=== PATIENT | female | born 1930 | race Hispanic/Latino ===

== ENCOUNTER 2018-03-07 21:48 | Inpatient (IN) | payer MEDICARE, BC ==
--- NOTE | 2018-03-07 22:47 | ED PDOC ---
HPI: Trauma/Fall - HPI Time Seen by Provider: 03/07/18 22:28 Chief Complaint (Nursing): Trauma Chief Complaint (Provider): Trauma History Per: Patient, EMS, Family History/Exam Limitations: clinical condition (dementia) Onset/Duration Of Symptoms: Hrs (ROUTE AGENT) Associated Symptoms: denies: LOC Additional Complaint(s): Patient is an 87 y/o female with history of hypertension, hypercholesterolemia, and dementia who was brought to the ED by ambulance for evaluation s/p fall and head injury. Patient was found lying on the floor of her apartment face down. Patient reports that she tripped and fell down but denies any syncopal episode or loss of consciousness. Patient was last seen in the morning today at 11:00 and since then no one saw her. She was found prior to arrival on the floor, covered in excrement. Patient is unclear how long she was on the floor and reports she lives by herself. She states she has neck pain and was put in a cervical collar. She also states she has pain in both knees. Patient is unsure how long she was on the floor. PMD: [place], in [place] - Fall Fall:Prior To Injury: Tripped Past Medical History Reviewed: Historical Data, Nursing Documentation, Vital Signs Vital Signs: Last Vital Signs Temp 97.5 F L 03/07/18 21:54 Pulse 91 H 03/07/18 21:54 Resp 16 03/07/18 21:54 BP 117/72 03/07/18 21:54 Pulse Ox 98 03/07/18 21:54 - Medical History PMH: HTN, Hypercholesterolemia - Surgical History Surgical History: No Surg Hx - Family History Family History: States: Unknown Family Hx - Living Arrangements Living Arrangements: Alone - Immunization History Hx Tetanus Toxoid Vaccination: No Hx Influenza Vaccination: Yes ("65+YRS)) Hx Pneumococcal Vaccination: No - Home Medications Home Medications: Ambulatory Orders Medication Instructions Recorded Losartan/Hydrochlorothiazide 1 each PO DAILY 03/08/18 [Losartan-Hctz 100-12.5 mg Tab] Memantine [Namenda] 5 mg DAILY 03/08/18 Rosuvastatin Calcium [Crestor] 20 mg PO DAILY 03/08/18 - Allergies Allergies/Adverse Reactions: Allergies Allergy/AdvReac Type Severity Reaction Status Date / Time Penicillins Allergy RASH Verified 03/07/18 21:54 Review of Systems ROS Statement: Except As Marked, All Systems Reviewed And Found Negative Cardiovascular: Negative for: Chest Pain Musculoskeletal: Positive for: Neck Pain, Leg Pain (bilateral knee pain), Other (Head injury) Neurological: Negative for: Other (loss of consciousness, syncope) Physical Exam - Reviewed Nursing Documentation Reviewed: Yes Vital Signs Reviewed: Yes - Physical Exam Appears: Positive for: Non-toxic, No Acute Distress Head Exam: Positive for: ATRAUMATIC, NORMOCEPHALIC. Negative for: NORMAL INSPECTION (abrasion on chin) Skin: Positive for: Normal Color, Warm, DRY Eye Exam: Positive for: EOMI, Normal appearance, PERRL ENT: Positive for: Normal ENT Inspection Neck: Negative for: Normal (tender; patient is in cervical collar) Cardiovascular/Chest: Positive for: Regular Rate, Rhythm. Negative for: Murmur Respiratory: Positive for: Normal Breath Sounds. Negative for: Respiratory Distress Gastrointestinal/Abdominal: Positive for: Normal Exam, Soft. Negative for: Tenderness Extremity: Positive for: Normal ROM (of all extremities), Other (abrasion on bilateral knees; abrasion on left hip; upper extremities normal). Negative for: Pedal Edema, Deformity Neurologic/Psych: Positive for: Alert, front elevator operator II-XII (intact), Oriented. Negative for: Motor/Sensory Deficits - Laboratory Results Result Diagrams: 03/07/18 23:30 03/07/18 23:30 - ECG ECG: Positive for: Interpreted By Me, Viewed By [place] ECG Rhythm: Positive for: Normal QRS, Normal ST Segment, Sinus Rhythm. Negative for: ST/T Changes Rate: 94 O2 Sat by Pulse Oximetry: 98 (RA) Pulse Ox Interpretation: Normal - Radiology X-Ray: Interpreted by Me, Viewed By [place] X-Ray Interpretation: No Acute Disease - Other Rad Pelvis X-Ray: Interpreted by Me, Viewed By [place] X-Ray Interpretation: no acute findings Medical Decision Making Medical Decision Making: Time: 22:36 Initial Impression: Fall, head injury, neck injury, bilateral knee injury, multiple system trauma, possible syncope Initial Plan: Type and Screen CT Cervical Spine CT Head w/o contrast EKG BMP CPK Troponin CBC w/ diff PTT Prothrombin Scribe Attestation: Documented by Shaun Jair acting as a scribe for Alexander Mcintosh MD Provider Scribe Attestation: All medical record entries made by the Scribe were at my direction and personally dictated by me. I have reviewed the chart and agree that the record accurately reflects my personal performance of the history, physical exam, medical decision making, and the department course for this patient. I have also personally directed, reviewed, and agree with the discharge instructions and disposition. Disposition - Clinical Impression Clinical Impression: NSTEMI (non-ST elevated myocardial infarction), Fall, Multiple injuries - Patient ED Disposition Is Patient to be Admitted: Transfer of Care Counseled Patient/Family Regarding: Studies Performed, Diagnosis - Disposition Disposition: Transfer of Care Disposition Time: 23:00 Condition: STABLE Patient Signed Over To: Richardson Rod Handoff Comments: Patient pending CT scan, labs, and reevaluation
--- NOTE | 2018-03-07 23:14 | ED PDOC ---
- Laboratory Results Result Diagrams: 03/07/18 23:30 03/07/18 23:30 - ECG O2 Sat by Pulse Oximetry: 98 (RA) Pulse Ox Interpretation: Normal - Critical Care Total Time (In Min): 60 Documented Critical Care: Time excludes all time spent performint seperately billable procedures Medical Decision Making Medical Decision Making: Time: 2299 Patient endorsed to me by Dr. Mcintosh pending CT scan, labs and reevaluation. Time: 24 Patient has troponin of 3. Patient reassessed and has no chest pain or shortness of breath. Vitals stable, patient very well appearing at this time. Discussed the case with the retail stock clerk, Dr. Griggs, recommends ASA instead of heparin given recent history of trauma. Recommends echo. Time: [address] Sage for patient admission. -- Scribe Attestation: Documented by Carlos Muniz acting as a scribe for Richardson Rod MD Provider Scribe Attestation: All medical record entries made by the Scribe were at my direction and personally dictated by me. I have reviewed the chart and agree that the record accurately reflects my personal performance of the history, physical exam, medical decision making, and the department course for this patient. I have also personally directed, reviewed, and agree with the discharge instructions and disposition. Disposition - Clinical Impression Clinical Impression: NSTEMI (non-ST elevated myocardial infarction) - POA Present On Arrival: None - Disposition Disposition: Admitted as In-Patient Disposition Time: 00:40 Condition: SERIOUS
[2018-03-07 23:40] LABS: BASO # 0.1 K/uL (0.0-0.2); BASO % 0.3 % (0.0-2.0); HEMOGLOBIN 13.6 g/dL (12.0-16.0); LYMPH # 0.4 K/uL (1.0-4.3); LYMPH % 2.5 % (20.0-40.0); MEAN CELL VOLUME 87.8 fl (81.0-99.0); MEAN CORPUSCULAR HEMOGLOBIN 31.4 pg (27.0-31.0); MEAN CORPUSCULAR HGB CONC 35.7 g/dL (33.0-37.0); MEAN PLATELET VOLUME 7.7 fl (7.2-11.7); MONO # 0.6 K/uL (0.0-0.8); MONO % 3.7 % (0.0-10.0); NEUT # 16.2 K/uL (1.8-7.0); NEUT % 93.5 % (50.0-75.0); PLATELET COUNT 258 K/uL (130-400); RBC 4.35 Mil/uL (3.80-5.20); RED CELL DISTRIBUTION WIDTH 13.2 % (11.5-14.5); WHITE BLOOD COUNT 17.4 K/uL (4.8-10.8)
[2018-03-07 23:49] LABS: BLOOD UREA NITROGEN 15 mg/dl (7-17); CALCIUM 9.7 mg/dL (8.4-10.2); GFR NON-AFRICAN AMERICAN > 60
[2018-03-07 23:51] LABS: INR 1.1
[2018-03-07 23:53] LABS: PARTIAL THROMBOPLASTIN TIME 32.2 Seconds (25.6-37.1)
[2018-03-08 00:31] LABS: SQUAMOUS EPITHIAL < 1 /hpf (0-5); URINE BACTERIA RARE (<OCC); URINE BILIRUBIN NEGATIVE (NEGATIVE); URINE BLOOD NEGATIVE (NEGATIVE); URINE CLARITY SLIGHTY-CLOUDY (Clear); URINE COLOR YELLOW (YELLOW); URINE GLUCOSE (UA) NEG (Normal); URINE LEUKOCYTE ESTERASE NEG Leu/uL (Negative); URINE PROTEIN 30 mg/dL (NEGATIVE); URINE UROBILINOGEN 0.2-1.0 mg/dL (0.2-1.0)
[2018-03-08] MEDS ORDERED: Sodium Chloride 0.9% 1,000 ML IV STA ×3 (00:42→02:25)
[2018-03-08 01:04] LABS: ANISOCYTOSIS SLIGHT; LYMPHOCYTE 2 % (20-50); MONOCYTE 3 % (0-10); NEUTROPHIL 95 % (42-75); PLATELET ESTIMATE NORMAL (NORMAL); TOTAL CELLS COUNTED 100
[2018-03-08 01:05] LABS: LARGE PLATELETS PRESENT
--- NOTE | 2018-03-08 06:38 | CARD ---
APPROVED REPORT Date of service: 03/07/2018 EKG Measurement Heart [id number] <Conclusion> Normal sinus rhythm Low voltage QRS Borderline ECG
--- NOTE | 2018-03-08 08:42 | CT ---
Date of service: 03/07/2018 PROCEDURE: CT HEAD WITHOUT CONTRAST. HISTORY: fall COMPARISON: None available. TECHNIQUE: Axial computed tomography images were obtained through the head/brain without intravenous contrast. Radiation dose: Total exam DLP = 805.01 mGy-cm. This CT exam was performed using one or more of the following dose reduction techniques: Automated exposure control, adjustment of the mA and/or kV according to patient size, and/or use of iterative reconstruction technique. FINDINGS: HEMORRHAGE: No intracranial hemorrhage. BRAIN: No mass effect or edema. There is generalized cerebral atrophy present. The periventricular hypodensities are compatible with microvascular ischemic changes. There is trace asymmetrical density, not that of blood i,n the right temporal lobe axial series 4, image 29. This is less apparent on subsequent more cephalad images and may be technical. No associated mass effect here appreciated VENTRICLES: Unremarkable. No hydrocephalus. CALVARIUM: Unremarkable. PARANASAL SINUSES: Minimal ethmoidal sinus mucosal inflammatory changes. MASTOID AIR CELLS: Unremarkable as visualized. No inflammatory changes. OTHER FINDINGS: None. IMPRESSION: No intracranial hemorrhage or mass effect. Cerebral atrophy and inferred microvascular ischemic changes-mostly periventricular. Minimal ethmoidal sinus mucosal inflammatory changes.
--- NOTE | 2018-03-08 08:55 | CT ---
Date of service: 03/07/2018 PROCEDURE: CT Cervical Spine without contrast HISTORY: fall COMPARISON: None available. TECHNIQUE: Axial computed tomography images were obtained of the cervical spine without the use of intravenous contrast. Coronal and sagittal reformatted images were created and reviewed. Radiation dose: Total exam DLP = 245.08 mGy-cm. This CT exam was performed using one or more of the following dose reduction techniques: Automated exposure control, adjustment of the mA and/or kV according to patient size, and/or use of iterative reconstruction technique. FINDINGS: VERTEBRAE: No fracture. Normal alignment. No destructive bony lesion. DISCS/SPINAL CANAL/NEURAL FORAMINA: No significant central canal or neural foraminal stenosis. Discs heights are this very slightly diffusely narrowed PARASPINAL SOFT TISSUES: Unremarkable. OTHER FINDINGS: Mild endplate spurring and bilateral apophyseal arthropathic hypertrophy IMPRESSION: No fracture. No significant appearing malalignment Bilateral apophyseal arthrosis -senescent changes. Concordant results (preliminary interpretation) provided by [facility].
--- NOTE | 2018-03-08 08:58 | RAD ---
PROCEDURE: HISTORY: pain COMPARISON: None. FINDINGS: BONES: Bilateral medial femoral tibial joint space narrowing. Bilateral patellofemoral joint space narrowing is also probable. JOINTS: Osteoarthrosis as above JOINT EFFUSION: No large joint effusion. Small effusions not excluded OTHER FINDINGS: None. IMPRESSION: Osteoarthrosis.
--- NOTE | 2018-03-08 08:59 | RAD ---
Date of service: 03/07/2018 PROCEDURE: CHEST RADIOGRAPH, 1 VIEW HISTORY: fall COMPARISON: None available. FINDINGS: LUNGS: Clear. PLEURA: No pneumothorax or pleural fluid seen. CARDIOVASCULAR: Top-normal heart size. Tortuous and heavily calcified thoraco abdominal aorta OSSEOUS STRUCTURES: Thoraco lumbar spondylosis and scoliosis VISUALIZED UPPER ABDOMEN: Normal. OTHER FINDINGS: None. IMPRESSION: No acute cardiopulmonary pathology appreciated Other findings as above.
--- NOTE | 2018-03-08 09:02 | RAD ---
Date of service: 03/07/2018 PROCEDURE: Radiographs of the pelvis. HISTORY: fall COMPARISON: None. FINDINGS: BONES: Generalized osteopenia Pelvic Bones: No gross fracture seen Hips: No gross fracture seen bilateral hip arthrosis JOINTS: Sacroiliac Joints: Unremarkable. Pubic Symphysis: Minimal degenerative changes OTHER FINDINGS: Scoliosis and lumbar facet hypertrophic arthrosis Atherosclerotic vascular calcifications present. Bilateral hemipelvic phleboliths IMPRESSION: Senescent arthro pathic changes and generalized osteopenia. No gross fracture or dislocation seen. Atherosclerotic vascular calcifications present.
[2018-03-08] MEDS: Enoxaparin 40 mg Syringe SC SCH (09:37)
--- NOTE | 2018-03-08 12:17 | CP.PCM.CON ---
History of Present Illness - History of Present Illness History of Present Illness: PT ADMITTED WITH FALL AND HEAD TRAUMA. ASKED TO SEE PT SECONDARY TO POSITIVE TROPONIN. PT DENIES CP, SOB, PALP, LH, SYNCOPE OR NEAR SYNCOPE. PT ALSO NOTED TO HAVE SIGNIFICANTLY ELEVATED CK LEVEL DUE TO FALL. EKG IS UNREMARKABLE. PT DENIES ANY CARDIAC HISTORY. Review of Systems - Constitutional Constitutional: absent: As Per HPI, Anorexia, Chills, Daytime Sleepiness, Excessive Sweating, Fatigue, Fever, Frequent Falls, Headache, Increased Appetite, Lethargy, Malaise, Night Sweats, Snoring, Sleep Apnea, Weight Gain, Weight Loss, Weakness, Other - EENT Eyes: As Per HPI. absent: Blind Spots, Blurred Vision, Change in Vision, Decreased Night Vision, Diplopia, Discharge, Dry Eye, Exophthalmos, Floaters, Irritation, Itchy Eyes, Loss of Peripheral Vision, Pain, Photophobia, Requires Corrective Lenses, Sees Flashes, Spots in Vision, Tunnel Vision, Other Visual Disturbances, Loss of Vision, Other Ears: As Per HPI. absent: Decreased Hearing, Ear Discharge, Ear Pain, Tinnitus, Abnormal Hearing, Disequilibrium, Dizziness, Other Nose/Mouth/Throat: As Per HPI. absent: Epistaxis, Nasal Congestion, Nasal Discharge, Nasal Obstruction, Nasal Trauma, Nose Pain, Post Nasal Drip, Sinus Pain, Sinus Pressure, Bleeding Gums, Change in Voice, Dental Pain, Dry Mouth, Dysphagia, Halitosis, Hoarsness, Lip Swelling, Mouth Lesions, Mouth Pain, Odynophagia, Sore Throat, Throat Swelling, Tongue Swelling, Facial Pain, Neck Pain, Neck Mass, Other - Breasts Breasts: As Per HPI. absent: Change in Shape, Mass, Pain, Nipple Discharge, Nipple Inversion, Skin Changes, Swelling, Other - Cardiovascular Cardiovascular: As Per HPI. absent: Acrocyanosis, Chest Pain, Chest Pain at Rest, Chest Pain with Activity, Claudication, Diaphoresis, Dyspnea, Dyspnea on Exertion, Edema, Irregular Heart Rhythm, Pain Radiating to Arm/Neck/Jaw, Leg Edema, Leg Ulcers, Lightheadedness, Orthopnea, Palpitations, Paroxysmal Nocturnal Dyspnea, Pedal Edema, Radiating Pain, Rapid Heart Rate, Slow Heart Rate, Syncope, Other - Respiratory Respiratory: As Per HPI. absent: Cough, Dyspnea, Hemoptysis, Dyspnea on Exertion, Wheezing, Snoring, Stridor, Pain on Inspiration, Chest Congestion, Excessive Mucous Production, Change in Mucous Color, Pain with Coughing, Other - Gastrointestinal Gastrointestinal: As Per HPI. absent: Abdominal Pain, Belching, Bloating, Change in Bowel Habits, Change in Stool Character, Coffee Ground Emesis, Constipation, Cramping, Diarrhea, Dyspepsia, Dysphagia, Early Satiety, Excessive Flatus, Fecal Incontinence, Heartburn, Hematemesis, Hematochezia, Loose Stools, Melena, Nausea, Odynophagia, Temesmus, Vomiting, Other - Genitourinary Genitourinary: As Per HPI. absent: Change in Urinary Stream, Difficulty Urinating, Dysuria, Flank Pain, Hematuria, Pyuria, Nocturia, Urinary Incontinence, Urinary Frequency, Urinary Hesitance, Urinary Urgency, Voiding Freq/Small Amts, Freq UTI, Hx Renal/Bladder Calculi, Hx /Renal Surgery, Bladder Distension, Other - Reproductive: Female Reproductive:Female: As Per HPI. absent: Amenorrhea, Amenorrhea/ Control, Currently Menstual, Cycle <21 Days, Cycle >35 Days, Cycle Variable, Menses 1-7 Days, Menses >/= 8 Days, Menses Variable, Cycle > 4 Weeks Between, No Menses for 6 Months, Heavy Menses, Light Menses, Normal Menses, Spotting Between Cycles, S/P Hysterectomy, Menopausal, Post Menopausal, Premenarche, Abnormal Vaginal Bleeding, Dysmenorrhea, Dyspareunia, Genital Lesions, Genital Pruritis, Pelvic Pain, Prolapse Symptoms, Sexual Dysfunction, Vaginal Discharge, Vaginal Dryness, Vaginal Odor, Vaginal Pruritis, Other - Menstruation Menstruation: As Per HPI. absent: Amenorrhea, Amenorrhea/ Control, Currently Menstual, Cycle <21 Days, Cycle >35 Days, Cycle Variable, Menses 1-7 Days, Menses >/= 8 Days, Menses Variable, Cycle > 4 Weeks Between, No Menses for 6 Months, Heavy Menses, Light Menses, Normal Menses, Spotting Between Cycles, S/P Hysterectomy, Menopausal, Post Menopausal, Premenarche, Abnormal Vaginal Bleeding, Dysmenorrhea, Other - Musculoskeletal Musculoskeletal: As Per HPI, Limited Range of Motion. absent: Abnormal Gait, Arthralgias, Atrophy, Back Pain, Deformity, Joint Swelling, Loss of Height, Muscle Cramps, Muscle Weakness, Myalgias, Neck Pain, Numbness, Radiating Pain into Limb, Stiffness, Tingling, Other - Integumentary Integumentary: As Per HPI. absent: Acne, Alopecia, Bleeding Lesions, Change in Hair, Change in Nails, Change in Pigmentation, Changing Lesions, Dry Skin, Erythema, Furuncle, Hirsutism, Lesions, New Lesions, Non-Healing Lesions, Photosensitivity, Pruritus, Rash, Skin Pain, Skin Ulcer, Sores, Striae, Swelling, Unusual Bruising, Wounds, Jaundice, Other - Neurological Neurological: As Per HPI. absent: Abnormal Gait, Abnormal Hearing, Abnormal Movements, Abnormal Speech, Behavioral Changes, Burning Sensations, Confusion, Convulsions, Disequilibrium, Dizziness, Numbness, Focal Weakness, Frequent Falls, Headaches, Lack of Coordination, Loss of Vision, Memory Loss, Paresth esias, Radicular Pain, Restless Legs, Sensory Deficit, Syncope, Tingling, Tremor, Vertigo, Weakness, Other Visual Disturbances, Other - Psychiatric Psychiatric: As Per HPI. absent: Abnormal Sleep Pattern, Anhedonia, Anxiety, Auditory Hallucinations, Behavioral Changes, Change in Appetite, Change in Libido, Confusion, Depression, Difficulty Concentrating, Hallucinations, Homicidal Ideation, Hopelessness, Irritability, Memory Loss, Mood Swings, Panic Attacks, Paranoia, Suicidal Ideation, Visual Hallucinations, Tactile Hallucinations, Other - Endocrine Endocrine: As Per HPI. absent: Change in Body Appearance, Change in Libido, Cold Intolorance, Deepening of Voice, Excessive Sweating, Fatigue, Flushing, Heat Intolorance, Increase in Ring/Shoe/Hat Size, Palpitations, Polydipsia, Polyphagia, Polyuria, Other - Hematologic/Lymphatic Hematologic: As Per HPI. absent: Easy Bleeding, Easy Bruising, Lymphadenopathy, Other Past Patient History - Past Medical History & Family History Past Medical History?: Yes - Past Social History Smoking Status: Former Smoker Drugs: Denies - CARDIAC Hx Hypercholesterolemia: Yes Hx Hypertension: Yes - PULMONARY Hx Respiratory Disorders: No - NEUROLOGICAL Hx Neurological Disorder: No - HEENT Hx HEENT Problems: No - RENAL Hx Chronic Kidney Disease: No - ENDOCRINE/METABOLIC Hx Endocrine Disorders: No - HEMATOLOGICAL/ONCOLOGICAL Hx Blood Disorders: No - INTEGUMENTARY Hx Dermatological Problems: No - MUSCULOSKELETAL/RHEUMATOLOGICAL Hx Falls: Yes - GASTROINTESTINAL Hx Gastrointestinal Disorders: No - GENITOURINARY/GYNECOLOGICAL Hx Genitourinary Disorders: No - PSYCHIATRIC Hx Psychophysiologic Disorder: No Hx Substance Use: No - ANESTHESIA Hx Anesthesia: No Hx Anesthesia Reactions: No Meds Allergies/Adverse Reactions: Allergies Allergy/AdvReac Type Severity Reaction Status Date / Time Penicillins Allergy RASH Verified 03/07/18 21:54 - Medications Medications: Current Medications Acetaminophen (Tylenol 325mg Tab) 650 mg PO Q6 PRN PRN Reason: Pain, moderate (4-7) Atorvastatin Calcium (Lipitor) 80 mg PO DAILY [facility] Last Admin: 03/08/18 09:37 Dose: 80 mg Enoxaparin Sodium (Lovenox) 40 mg SC DAILY [facility]; Protocol Last Admin: 03/08/18 09:37 Dose: 40 mg Sodium Chloride (Sodium Chloride 0.9%) 1,000 mls @ 150 mls/hr IV .Q6H40M [facility] Stop: 03/09/18 07:15 Memantine (Namenda) 5 mg PO DAILY [facility] Last Admin: 03/08/18 09:38 Dose: 5 mg Metoprolol Tartrate (Lopressor) 6.25 mg PO Q12 [facility] Last Admin: 03/08/18 09:36 Dose: 6.25 mg Morphine Sulfate (Morphine) 2 mg IVP Q6 PRN PRN Reason: Pain, severe (8-10) Physical Exam - Constitutional Appears: No Acute Distress - Head Exam Head Exam: ATRAUMATIC, NORMAL INSPECTION, NORMOCEPHALIC - Eye Exam Eye Exam: EOMI, Normal appearance, PERRL. absent: Conjunctival injection, Nystagmus, Periorbital swelling, Periorbital tenderness, Scleral icterus Pupil Exam: NORMAL ACCOMODATION, PERRL. absent: Fixed, Irregular, Miosis, Mydriatic, Unequal - ENT Exam ENT Exam: Mucous Membranes Moist, Normal Exam. absent: Mucous Membranes Dry, Normal External Ear Exam, Normal Oropharynx, TM's Normal Bilaterally - Neck Exam Neck exam: Positive for: Normal Inspection. Negative for: Full Rom, Lymphadenopathy, Meningismus, Tenderness, Thyromegaly - Respiratory Exam Respiratory Exam: Clear to Auscultation Bilateral, NORMAL BREATHING PATTERN. absent: Accessory Muscle Use, Chest Wall Tenderness, Decreased Breath Sounds, Prolonged Expiratory Phase, Rales, Rhonchi, Wheezes, Respiratory Distress, Stridor - Cardiovascular Exam Cardiovascular Exam: REGULAR RHYTHM, +S1, +S2, Systolic Murmur - GI/Abdominal Exam GI & Abdominal Exam: Normal Bowel Sounds, Soft. absent: Bruit, Diminished Bowel Sounds, Distended, Firm, Guarding, Hernia, Hyperactive Bowel Sounds, Hypoactive Bowel Sounds, Mass, Organomegaly, Pulsatile Mass, Rebound, Rigid, Tenderness - Rectal Exam Rectal Exam: Deferred - Extremities Exam Extremities exam: Positive for: pedal edema, tenderness, pedal pulses present. Negative for: calf tenderness, full ROM, joint swelling, normal capillary refill, normal inspection - Neurological Exam Neurological exam: Alert, Oriented x3 - Psychiatric Exam Psychiatric exam: Normal Affect, Normal Mood - Skin Skin Exam: Dry, Intact, Normal Color, Warm Results - Vital Signs Recent Vital Signs: Last Vital Signs Temp 97.5 F L 03/08/18 08:00 Pulse 94 H 03/08/18 10:54 Resp 18 03/08/18 08:00 BP 95/58 L 03/08/18 08:00 Pulse Ox 98 03/08/18 10:54 - Labs Result Diagrams: 03/07/18 23:30 03/07/18 23:30 Labs: Laboratory Results - last 24 hr 03/07/18 03/07/18 03/07/18 22:46 23:30 23:30 WBC 17.4 H RBC 4.35 Hgb 13.6 Hct 38.1 MCV 87.8 MCH 31.4 H MCHC 35.7 RDW 13.2 Plt Count 258 MPV 7.7 Neut % (Auto) 93.5 H Lymph % (Auto) 2.5 L [place] % (Auto) 3.7 Eos % (Auto) 0.0 Baso % (Auto) 0.3 Neut # (Auto) 16.2 H Lymph # (Auto) 0.4 L [place] # (Auto) 0.6 Eos # (Auto) 0.0 Baso # (Auto) 0.1 Neutrophils % (Manual) 95 H Lymphocytes % (Manual) 2 L Monocytes % (Manual) 3 Platelet Estimate Normal Large Platelets Present Anisocytosis (manual) Slight PT INR APTT Sodium 128 L Potassium 4.4 Chloride 95 L Carbon Dioxide 24 Anion Gap 13 BUN 15 Creatinine 0.5 L Est GFR ( Amer) > 60 Est GFR (Non-Af Amer) > 60 POC Glucose (mg/dL) 143 H Random Glucose 129 H Calcium 9.7 Total Creatine Kinase > 1600 H Troponin I 3.5300 H* Urine Color Urine Clarity Urine pH Ur Specific [place] Urine Protein Urine Glucose (UA) Urine Ketones Urine Blood Urine Nitrate Urine Bilirubin Urine Urobilinogen Ur Leukocyte Esterase Urine RBC (Auto) Urine Microscopic WBC Ur Squamous Epith Cells Urine Bacteria Hyaline Casts 03/07/18 03/08/18 03/08/18 23:30 00:15 03:00 WBC RBC Hgb Hct MCV MCH MCHC RDW Plt Count MPV Neut % (Auto) Lymph % (Auto) [place] % (Auto) Eos % (Auto) Baso % (Auto) Neut # (Auto) Lymph # (Auto) [place] # (Auto) Eos # (Auto) Baso # (Auto) Neutrophils % (Manual) Lymphocytes % (Manual) Monocytes % (Manual) Platelet Estimate Large Platelets Anisocytosis (manual) PT 12.0 INR 1.1 APTT 32.2 Sodium Potassium Chloride Carbon Dioxide Anion Gap BUN Creatinine Est GFR ( Amer) Est GFR (Non-Af Amer) POC Glucose (mg/dL) Random Glucose Calcium Total Creatine Kinase Troponin I 3.9300 H* Urine Color Yellow Urine Clarity Slighty-cloudy Urine pH 6.0 Ur Specific [place] 1.017 Urine Protein 30 Urine Glucose (UA) Neg Urine Ketones 20 Urine Blood Negative Urine Nitrate Negative Urine Bilirubin Negative Urine Urobilinogen 0.2-1.0 Ur Leukocyte Esterase Neg Urine RBC (Auto) 3 Urine Microscopic WBC 1 Ur Squamous Epith Cells < 1 Urine Bacteria Rare Hyaline Casts 6-10 H 03/08/18 10:21 WBC RBC Hgb Hct MCV MCH MCHC RDW Plt Count MPV Neut % (Auto) Lymph % (Auto) [place] % (Auto) Eos % (Auto) Baso % (Auto) Neut # (Auto) Lymph # (Auto) [place] # (Auto) Eos # (Auto) Baso # (Auto) Neutrophils % (Manual) Lymphocytes % (Manual) Monocytes % (Manual) Platelet Estimate Large Platelets Anisocytosis (manual) PT INR APTT Sodium Potassium Chloride Carbon Dioxide Anion Gap BUN Creatinine Est GFR ( Amer) Est GFR (Non-Af Amer) POC Glucose (mg/dL) Random Glucose Calcium Total Creatine Kinase 3178 H Troponin I Urine Color Urine Clarity Urine pH Ur Specific [place] Urine Protein Urine Glucose (UA) Urine Ketones Urine Blood Urine Nitrate Urine Bilirubin Urine Urobilinogen Ur Leukocyte Esterase Urine RBC (Auto) Urine Microscopic WBC Ur Squamous Epith Cells Urine Bacteria Hyaline Casts Assessment & Plan (1) Aortic stenosis Status: Acute (2) Troponin level elevated Status: Acute (3) Fall Status: Acute - Assessment and Plan (Free Text) Plan: ECHO IMAGES PERSONALLY REVIEWED. EVIDENCE OF MILD TO MOD STENOSIS OF THE AV. AV AREA LIKELY UNDER MEASURED DUE TO UNDER MEASUREMENT OF LVOT. PTS MEAN PRESSURE GRADIENT IS MOD RANGE. PTS MURMUR IS NOT C/W SEVERE STENOSIS. GIVEN PTS LACK OF CP OR SOB THE TROP ELEVATION MAY BE DUE TO FALL AND RHABDO. TREAT WITH ASA, NO ANTICOAGULATION. MONITOR FOR ARRYTHMIAS. TREND TROP. WOULD BE CAUTIOUS WITH ANY ANTIHYPERTENSIVE MEDICATIONS GIVEN PTS AGE AND VALVULAR HEART DISEASE. AVOID DIURETICS. 65 MIN TOTAL CARE TIME.
--- NOTE | 2018-03-08 13:06 | CP.PCM.HP ---
History of Present Illness - History of Present Illness History of Present Illness: 87 y/o female with history of hypertension, hypercholesterolemia, and dementia who presented to the ED by ambulance for evaluation s/p fall and head injury. Patient was found lying on the floor of her apartment. Patient reports that she tripped and fell down but denies any syncopal episode or loss of consciousness. She reports fecal incontinence. Patient is unclear how long she was on the floor and reports she lives by herself. She states she has neck pain and was put in a cervical collar. She also states she has pain in both knees. She denies CP/N/V, SOB, no abdmonial pain, urinary symptoms. PMD: [place] PMH: HTN, HLD, dementia PSH: denies MEds: see bellow Allergies: penicilin ( hives) FMH: noncontributory SH: never smoked, etoh or drugs Present on Admission - Present on Admission Any Indicators Present on Admission: No Review of Systems - Review of Systems All systems: reviewed and no additional remarkable complaints except (HPI) Past Patient History - Past Medical History & Family History Past Medical History?: Yes - Past Social History Smoking Status: Former Smoker - CARDIAC Hx Hypercholesterolemia: Yes Hx Hypertension: Yes - MUSCULOSKELETAL/RHEUMATOLOGICAL Hx Falls: Yes - PSYCHIATRIC Hx Substance Use: No - ANESTHESIA Hx Anesthesia: No Hx Anesthesia Reactions: No Meds Allergies/Adverse Reactions: Allergies Allergy/AdvReac Type Severity Reaction Status Date / Time Penicillins Allergy RASH Verified 03/07/18 21:54 Physical Exam - Constitutional Appears: No Acute Distress - Head Exam Head Exam: NORMAL INSPECTION - Eye Exam Eye Exam: EOMI, PERRL - Respiratory Exam Respiratory Exam: Clear to Auscultation Bilateral - Cardiovascular Exam Cardiovascular Exam: REGULAR RHYTHM, +S1, +S2. absent: Tachycardia - GI/Abdominal Exam GI & Abdominal Exam: Normal Bowel Sounds, Soft. absent: Distended, Tenderness - Extremities Exam Extremities exam: Negative for: calf tenderness - Neurological Exam Neurological exam: Alert, Oriented x3 - Skin Skin Exam: Dry, Warm Additional comments: No abrasions Results - Vital Signs Recent Vital Signs: Last Vital Signs Temp 98.3 F 03/08/18 12:45 Pulse 82 03/08/18 12:45 Resp 18 03/08/18 12:45 BP 98/58 L 03/08/18 12:45 Pulse Ox 98 03/08/18 12:45 - Labs Result Diagrams: 03/07/18 23:30 03/07/18 23:30 Labs: Laboratory Results - last 24 hr 03/07/18 03/07/18 03/07/18 22:46 23:30 23:30 WBC 17.4 H RBC 4.35 Hgb 13.6 Hct 38.1 MCV 87.8 MCH 31.4 H MCHC 35.7 RDW 13.2 Plt Count 258 MPV 7.7 Neut % (Auto) 93.5 H Lymph % (Auto) 2.5 L [place] % (Auto) 3.7 Eos % (Auto) 0.0 Baso % (Auto) 0.3 Neut # (Auto) 16.2 H Lymph # (Auto) 0.4 L [place] # (Auto) 0.6 Eos # (Auto) 0.0 Baso # (Auto) 0.1 Neutrophils % (Manual) 95 H Lymphocytes % (Manual) 2 L Monocytes % (Manual) 3 Platelet Estimate Normal Large Platelets Present Anisocytosis (manual) Slight PT INR APTT Sodium 128 L Potassium 4.4 Chloride 95 L Carbon Dioxide 24 Anion Gap 13 BUN 15 Creatinine 0.5 L Est GFR ( Amer) > 60 Est GFR (Non-Af Amer) > 60 POC Glucose (mg/dL) 143 H Random Glucose 129 H Calcium 9.7 Total Creatine Kinase > 1600 H Troponin I 3.5300 H* Urine Color Urine Clarity Urine pH Ur Specific [place] Urine Protein Urine Glucose (UA) Urine Ketones Urine Blood Urine Nitrate Urine Bilirubin Urine Urobilinogen Ur Leukocyte Esterase Urine RBC (Auto) Urine Microscopic WBC Ur Squamous Epith Cells Urine Bacteria Hyaline Casts 03/07/18 03/08/18 03/08/18 23:30 00:15 03:00 WBC RBC Hgb Hct MCV MCH MCHC RDW Plt Count MPV Neut % (Auto) Lymph % (Auto) [place] % (Auto) Eos % (Auto) Baso % (Auto) Neut # (Auto) Lymph # (Auto) [place] # (Auto) Eos # (Auto) Baso # (Auto) Neutrophils % (Manual) Lymphocytes % (Manual) Monocytes % (Manual) Platelet Estimate Large Platelets Anisocytosis (manual) PT 12.0 INR 1.1 APTT 32.2 Sodium Potassium Chloride Carbon Dioxide Anion Gap BUN Creatinine Est GFR ( Amer) Est GFR (Non-Af Amer) POC Glucose (mg/dL) Random Glucose Calcium Total Creatine Kinase Troponin I 3.9300 H* Urine Color Yellow Urine Clarity Slighty-cloudy Urine pH 6.0 Ur Specific [place] 1.017 Urine Protein 30 Urine Glucose (UA) Neg Urine Ketones 20 Urine Blood Negative Urine Nitrate Negative Urine Bilirubin Negative Urine Urobilinogen 0.2-1.0 Ur Leukocyte Esterase Neg Urine RBC (Auto) 3 Urine Microscopic WBC 1 Ur Squamous Epith Cells < 1 Urine Bacteria Rare Hyaline Casts 6-10 H 03/08/18 10:21 WBC RBC Hgb Hct MCV MCH MCHC RDW Plt Count MPV Neut % (Auto) Lymph % (Auto) [place] % (Auto) Eos % (Auto) Baso % (Auto) Neut # (Auto) Lymph # (Auto) [place] # (Auto) Eos # (Auto) Baso # (Auto) Neutrophils % (Manual) Lymphocytes % (Manual) Monocytes % (Manual) Platelet Estimate Large Platelets Anisocytosis (manual) PT INR APTT Sodium Potassium Chloride Carbon Dioxide Anion Gap BUN Creatinine Est GFR ( Amer) Est GFR (Non-Af Amer) POC Glucose (mg/dL) Random Glucose Calcium Total Creatine Kinase 3178 H Troponin I Urine Color Urine Clarity Urine pH Ur Specific [place] Urine Protein Urine Glucose (UA) Urine Ketones Urine Blood Urine Nitrate Urine Bilirubin Urine Urobilinogen Ur Leukocyte Esterase Urine RBC (Auto) Urine Microscopic WBC Ur Squamous Epith Cells Urine Bacteria Hyaline Casts Assessment & Plan - Assessment and Plan (Free Text) Assessment: 87 y/o female with history of hypertension, hypercholesterolemia, and dementia admitted with NSTEMI, s/p syncope and fall at home. Plan: - Denies chest pain, VSS though BP in the low side - CT Cervical Spine and CT Head w/o contrast negative for bleeding or fractures - EKG: sinus rhythm - Troponin elevated x3 - CPK elevated - Cardiology consulted: appreciated recommendations - on ASA, lipitor and lopressor - f/u labs in am - echo official report pending. - rest of plan as ordered Case seen and examined with Dr Burkett.
--- NOTE | 2018-03-08 21:23 | CARD ---
APPROVED REPORT Date of service: 03/08/2018 EXAM: Two-dimensional and M-mode echocardiogram with Doppler and color Doppler. Other Information Quality : Good[employer] : NSR INDICATION Non STEMI 2D DIMENSIONS IVSd0.78 (0.7-1.1cm)LVDd4.22 (3.9-5.9cm) LVOT Diameter1.72 (1.8-2.4cm)PWd0.81 (0.7-1.1cm) IVSs1.17 (0.8-1.2cm)LVDs2.60 (2.5-4.0cm) FS (%) 38.5 %PWs1.19 (0.8-1.2cm) M-Mode DIMENSIONS Left Atrium (MM)4.16 (2.5-4.0cm)IVSd0.85 (0.7-1.1cm) Aortic Root2.51 (2.2-3.7cm)LVDd4.96 (4.0-5.6cm) Aortic Cusp Exc.1.13 (1.5-2.0cm)PWd0.94 (0.7-1.1cm) IVSs1.38 cmFS (%) 52 % LVDs2.40 (2.0-3.8cm)PWs1.32 cm Aortic Valve AoV Peak Axvlpxpu553.0cm/sAoV VTI77.2cmAO Peak GR.47mmHg LVOT Peak Ukvyfjww43.2cm/sLVOT VTI18.99cmAO Mean GR.29mmHg COLIN (VMAX)0.49ak6LFD (VTI)0.40cm2 Mitral Valve MV E Nuyyqhuv74.6cm/sMV DECEL [id number] A Ugpnflaw943.6cm/s MV PAN279fuN/A ratio0.6MVA (PHT)2.03cm2 TDI Lateral E' Peak V6.19cm/sMedial E' Peak V6.03cm/sE/Lateral E'11.6 E/Medial E'11.9 Tricuspid Valve TR Peak Yufyvnoq511dm/sRAP [id number] Peak Gr.21mmHg [id number] LEFT VENTRICLE The left ventricle is normal size. There is normal left ventricular wall thickness. The left ventricular systolic function is normal. The estimated ejection fraction is 60-65% No regional wall motion abnormalities noted.. Transmitral Doppler flow pattern is Grade I-abnormal relaxation pattern. No left ventricle thrombus noted on this study. There is no ventricular septal defect visualized. There is no left ventricular aneurysm. There is no mass noted in the left ventricle. RIGHT VENTRICLE The right ventricle is normal size. There is normal right ventricular wall thickness. The right ventricular systolic function is normal. ATRIA The left atrium is mildly dilated. The right atrium size is normal. The interatrial septum is intact with no evidence for an atrial septal defect. AORTIC VALVE The aortic valve is normal in structure. Mildly calcified leaflets. No aortic regurgitation is present. There is severe aortic valvular stenosis. Peak aortic velocity is 3.8 m/sec but AV area is calculated at 0.6 cm2 consistent with severe . There is no aortic valvular vegetation. MITRAL VALVE The mitral valve is normal in structure. There is no evidence of mitral valve prolapse. There is no mitral valve stenosis. There is no mitral valve regurgitation noted. TRICUSPID VALVE The tricuspid valve is normal in structure. There is mild tricuspid valve regurgitation noted. RVSP is calculated at 31 mm Hg. There is no tricuspid valve prolapse or vegetation. There is no tricuspid valve stenosis. PULMONIC VALVE The pulmonary valve is normal in structure. There is no pulmonic valvular regurgitation. There is no pulmonic valvular stenosis. GREAT VESSELS The aortic root is normal in size. The ascending aorta is normal in size. The pulmonary artery is normal. The IVC is normal in size and collapses >50% with inspiration. PERICARDIAL EFFUSION There is no pericardial effusion. There is no pleural effusion. <Conclusion> The estimated ejection fraction is 60-65% Transmitral Doppler flow pattern is Grade I-abnormal relaxation pattern. The left atrium is mildly dilated. There is severe aortic valvular stenosis. Peak aortic velocity is 3.8 m/sec but AV area is calculated at 0.6 cm2 consistent with severe . There is mild tricuspid valve regurgitation noted. RVSP is calculated at 31 mm Hg.
[2018-03-08] MEDS: Sodium Chloride 0.9% 1,000 ML IV SCH (21:44)
[2018-03-09] MEDS: Sodium Chloride 0.9% 1,000 ML IV SCH ×4 (05:55→20:09)
[2018-03-09] MEDS: Enoxaparin 40 mg Syringe SC SCH (08:49)
[2018-03-09 10:21] LABS: HEMOGLOBIN 10.4 g/dL (12.0-16.0); MEAN CELL VOLUME 89.8 fl (81.0-99.0); MEAN CORPUSCULAR HEMOGLOBIN 31.5 pg (27.0-31.0); MEAN CORPUSCULAR HGB CONC 35.1 g/dL (33.0-37.0); RBC 3.29 Mil/uL (3.80-5.20); RED CELL DISTRIBUTION WIDTH 13.1 % (11.5-14.5); WHITE BLOOD COUNT 9.4 K/uL (4.8-10.8)
[2018-03-09 10:40] LABS: BLOOD UREA NITROGEN 10 mg/dl (7-17); CALCIUM 8.2 mg/dL (8.4-10.2); GFR NON-AFRICAN AMERICAN > 60
[2018-03-09] MEDS ORDERED: Potassium Chloride 20 mEq ER Tab PO ONE (11:27)
--- NOTE | 2018-03-09 12:47 | CP.PCM.PN ---
Subjective - Date & Time of Evaluation Date of Evaluation: 03/09/18 Time of Evaluation: 12:47 - Subjective Subjective: Patient seen and examined this morning during rounds, reports feeling well, denies chest pain or abdominal pain, no sob Afebrile, VSS Pending for PT eval Objective - Vital Signs/Intake and Output Vital Signs (last 24 hours): Temp Pulse Resp BP Pulse Ox 98.4 F 80 18 89/45 L 98 03/09/18 11:52 03/09/18 11:52 03/09/18 11:52 03/09/18 11:52 03/09/18 11:52 - Medications Medications: Current Medications Acetaminophen (Tylenol 325mg Tab) 650 mg PO Q6 PRN PRN Reason: Pain, moderate (4-7) Aspirin (Aspirin Chewable) 81 mg PO DAILY [facility] Last Admin: 03/09/18 08:48 Dose: 81 mg Atorvastatin Calcium (Lipitor) 80 mg PO DAILY [facility] Last Admin: 03/09/18 08:47 Dose: 80 mg Enoxaparin Sodium (Lovenox) 40 mg SC DAILY [facility]; Protocol Last Admin: 03/09/18 08:49 Dose: 40 mg Sodium Chloride (Sodium Chloride 0.9%) 1,000 mls @ 250 mls/hr IV .Q4H [facility] Stop: 03/10/18 12:08 Memantine (Namenda) 5 mg PO DAILY [facility] Last Admin: 03/08/18 09:38 Dose: 5 mg Metoprolol Tartrate (Lopressor) 6.25 mg PO Q12 [facility] Last Admin: 03/09/18 08:48 Dose: 6.25 mg Morphine Sulfate (Morphine) 2 mg IVP Q6 PRN PRN Reason: Pain, severe (8-10) Last Admin: 03/08/18 17:36 Dose: 2 mg - Labs Labs: 03/09/18 10:18 03/09/18 10:18 PT 12.0 Seconds (9.8-13.1) 03/07/18 23:30 INR 1.1 03/07/18 23:30 APTT 32.2 Seconds (25.6-37.1) 03/07/18 23:30 - Constitutional Appears: No Acute Distress - Head Exam Head Exam: NORMAL INSPECTION - Respiratory Exam Respiratory Exam: Clear to Ausculation Bilateral - Cardiovascular Exam Cardiovascular Exam: REGULAR RHYTHM, +S1, +S2, Murmur - GI/Abdominal Exam GI & Abdominal Exam: Soft. absent: Distended, Tenderness - Neurological Exam Neurological Exam: Alert, Awake, Oriented x3 - Skin Skin Exam: Dry, Warm Additional comments: bruise appreciated on chin Assessment and Plan - Assessment and Plan (Free Text) Assessment: 87 y/o female with history of hypertension, hypercholesterolemia, and dementia admitted with NSTEMI, s/p syncope and fall at home. Plan: - Denies chest pain, VSS though BP in the low side - EKG: sinus rhythm - Troponin elevated x3 trending down - CPK elevated, f/u in am - hypokalemia, replaced - Cardiology consulted: appreciated recommendations - on ASA, lipitor and lopressor - f/u labs in am - echo: LVEF 60-65%, severe , dilated LA - Pending for PT eval - rest of plan as ordered Case seen and examined with Dr Burkett.
[2018-03-10] MEDS: Sodium Chloride 0.9% 1,000 ML IV SCH ×5 (04:49→17:54)
[2018-03-10 05:31] LABS: BASO % 0.5 % (0.0-2.0); EOS # 0.2 K/uL (0.0-0.7); EOS % 1.9 % (0.0-4.0); HEMOGLOBIN 10.7 g/dL (12.0-16.0); LYMPH # 1.5 K/uL (1.0-4.3); LYMPH % 16.5 % (20.0-40.0); MEAN CELL VOLUME 91.5 fl (81.0-99.0); MEAN CORPUSCULAR HEMOGLOBIN 31.7 pg (27.0-31.0); MEAN CORPUSCULAR HGB CONC 34.6 g/dL (33.0-37.0); MEAN PLATELET VOLUME 8.4 fl (7.2-11.7); MONO # 0.6 K/uL (0.0-0.8); MONO % 6.9 % (0.0-10.0); NEUT # 6.7 K/uL (1.8-7.0); NEUT % 74.2 % (50.0-75.0); RBC 3.38 Mil/uL (3.80-5.20); RED CELL DISTRIBUTION WIDTH 13.4 % (11.5-14.5)
[2018-03-10 05:51] LABS: BLOOD UREA NITROGEN 11 mg/dl (7-17); GFR NON-AFRICAN AMERICAN > 60
[2018-03-10] MEDS: Enoxaparin 40 mg Syringe SC SCH (08:53)
--- NOTE | 2018-03-10 12:59 | CP.PCM.PN ---
Subjective - Date & Time of Evaluation Date of Evaluation: 03/09/18 Time of Evaluation: 13:00 - Subjective Subjective: PT HERE SECONDARY TO FALL AND HEAD TRAUMA. PT STATES SHE SLIPPED AND FELL. PT DENIES SYNCOPE. DENIES CP, PALP, LH, DIZZINESS, SOB, EDEMA. Objective - Vital Signs/Intake and Output Vital Signs (last 24 hours): Temp Pulse Resp BP Pulse Ox 97.4 F L 87 21 122/67 94 L 03/10/18 12:01 03/10/18 12:01 03/10/18 12:01 03/10/18 12:01 03/10/18 12:01 - Medications Medications: Current Medications Acetaminophen (Tylenol 325mg Tab) 650 mg PO Q6 PRN PRN Reason: Pain, moderate (4-7) Aspirin (Aspirin Chewable) 81 mg PO DAILY [facility] Last Admin: 03/10/18 08:58 Dose: 81 mg Atorvastatin Calcium (Lipitor) 80 mg PO DAILY [facility] Last Admin: 03/10/18 08:54 Dose: 80 mg Enoxaparin Sodium (Lovenox) 40 mg SC DAILY [facility]; Protocol Last Admin: 03/10/18 08:53 Dose: 40 mg Memantine (Namenda) 5 mg PO DAILY [facility] Last Admin: 03/10/18 08:57 Dose: 5 mg Metoprolol Tartrate (Lopressor) 6.25 mg PO Q12 [facility] Last Admin: 03/10/18 08:55 Dose: 6.25 mg Morphine Sulfate (Morphine) 2 mg IVP Q6 PRN PRN Reason: Pain, severe (8-10) Last Admin: 03/08/18 17:36 Dose: 2 mg - Labs Labs: 03/10/18 04:20 03/10/18 04:20 PT 12.0 Seconds (9.8-13.1) 03/07/18 23:30 INR 1.1 03/07/18 23:30 APTT 32.2 Seconds (25.6-37.1) 03/07/18 23:30 - Constitutional Appears: Well - Head Exam Head Exam: ATRAUMATIC, NORMAL INSPECTION, NORMOCEPHALIC - Eye Exam Eye Exam: EOMI, Normal appearance, PERRL. absent: Conjunctival injection, Nystagmus, Periorbital swelling, Periorbital tenderness, Scleral icterus Pupil Exam: NORMAL ACCOMODATION, PERRL - ENT Exam ENT Exam: Mucous Membranes Moist, Normal Exam. absent: Mucous Membranes Dry, Normal External Ear Exam, Normal Oropharynx, TM's Normal Bilaterally - Neck Exam Neck Exam: Full ROM, Normal Inspection. absent: Lymphadenopathy, Meningismus, Tenderness, Thyromegaly - Respiratory Exam Respiratory Exam: Clear to Ausculation Bilateral, NORMAL BREATHING PATTERN. absent: Accessory Muscle Use, Chest Wall Tenderness, Decreased Breath Sounds, Prolonged Expiratory Phase, Rales, Rhonchi, Wheezes, Respiratory Distress, Stridor - Cardiovascular Exam Cardiovascular Exam: Diastolic murmur, REGULAR RHYTHM, +S1, +S2, Murmur. absent: Bradycardia, Tachycardia, Clicks, Gallop, Irregular Rhythm, JVD, RRR, Rubs, +S4 - GI/Abdominal Exam GI & Abdominal Exam: Soft, Normal Bowel Sounds. absent: Bruit, Distended, Firm, Guarding, Rigid, Tenderness, Diminished Bowel Sounds, Hernia, Hyperactive Bowel Sounds, Hypoactive Bowel Sounds, Organomegaly, Pulsatile Mass, Rebound, Mass - Rectal Exam Rectal Exam: Deferred - Extremities Exam Extremities Exam: Full ROM, Normal Capillary Refill, Normal Inspection. absent: Joint Swelling, Pedal Edema - Back Exam Back Exam: NORMAL INSPECTION - Neurological Exam Neurological Exam: Alert, Awake, CN II-XII Intact, Normal Gait, Oriented x3 - Psychiatric Exam Psychiatric exam: Normal Affect, Normal Mood - Skin Skin Exam: Dry, Intact, Normal Color, Warm Assessment and Plan (1) Aortic stenosis Status: Acute (2) Troponin level elevated Status: Acute (3) Fall Status: Acute - Assessment and Plan (Free Text) Plan: ECHO NOTED CAROTIDS MONITOR LYTES TREND TROP NO CP OR CARDIAC SYMPTOMS. PT HAS ELEVATED CPK. TROP UNLIKELY DUE TO MYOCARDIAL ISCHEMIA
[2018-03-11] MEDS: Sodium Chloride 0.9% 1,000 ML IV SCH (05:39)
[2018-03-11 07:50] LABS: BLOOD UREA NITROGEN 12 mg/dl (7-17); CALCIUM 8.3 mg/dL (8.4-10.2); GFR NON-AFRICAN AMERICAN > 60
[2018-03-11 08:19] VITALS: BP 129/74; PULSE 84; RESP 20; TEMP 99.3; O2SAT 96
[2018-03-11] MEDS: Enoxaparin 40 mg Syringe SC SCH (10:18)
--- NOTE | 2018-03-13 06:24 | CP.PCM.PN ---
Subjective - Date & Time of Evaluation Date of Evaluation: 03/10/18 Time of Evaluation: 11:00 - Subjective Subjective: Patient remains stable Has no chest pain or SOB. Has no chest pain Had a hx of slip and fall. CBC showed hgb 10.7CMP normal CPK dropped to329 Objective - Vital Signs/Intake and Output Vital Signs (last 24 hours): Temp Pulse Resp BP Pulse Ox 99.3 F 84 20 129/74 96 03/11/18 08:19 03/11/18 08:19 03/11/18 08:19 03/11/18 08:19 03/11/18 08:19 - Labs Labs: 03/10/18 04:20 03/11/18 06:00 PT 12.0 Seconds (9.8-13.1) 03/07/18 23:30 INR 1.1 03/07/18 23:30 APTT 32.2 Seconds (25.6-37.1) 03/07/18 23:30 - Head Exam Head Exam: NORMAL INSPECTION - Eye Exam Eye Exam: Normal appearance - ENT Exam ENT Exam: Mucous Membranes Moist - Respiratory Exam Respiratory Exam: Clear to Ausculation Bilateral - GI/Abdominal Exam GI & Abdominal Exam: Normal Bowel Sounds - Neurological Exam Neurological Exam: Awake Assessment and Plan (1) Fall Status: Acute (2) Troponin level elevated Status: Acute (3) Aortic stenosis Status: Acute - Assessment and Plan (Free Text) Plan: Cont meds Phys therapy follow up with cardio Pain meds.
--- NOTE | 2018-03-13 06:28 | CP.PCM.DIS ---
Provider - Provider Date of Admission: 03/08/18 00:42 Attending physician: Dagoberto Coleman MD Time Spent in preparation of Discharge (in minutes): 30 Diagnosis - Discharge Diagnosis (1) Fall Status: Acute (2) Troponin level elevated Status: Acute (3) Aortic stenosis Status: Acute Hospital Course - Lab Results Lab Results: Most Recent Lab Values WBC 9.0 K/uL (4.8-10.8) 03/10/18 04:20 RBC 3.38 Mil/uL (3.80-5.20) L 03/10/18 04:20 Hgb 10.7 g/dL (12.0-16.0) L 03/10/18 04:20 Hct 30.9 % (34.0-47.0) L 03/10/18 04:20 MCV 91.5 fl (81.0-99.0) 03/10/18 04:20 MCH 31.7 pg (27.0-31.0) H 03/10/18 04:20 MCHC 34.6 g/dL (33.0-37.0) 03/10/18 04:20 RDW 13.4 % (11.5-14.5) 03/10/18 04:20 Plt Count 178 K/uL (130-400) 03/10/18 04:20 MPV 8.4 fl (7.2-11.7) 03/10/18 04:20 Neut % (Auto) 74.2 % (50.0-75.0) 03/10/18 04:20 Lymph % (Auto) 16.5 % (20.0-40.0) L 03/10/18 04:20 [place] % (Auto) 6.9 % (0.0-10.0) 03/10/18 04:20 Eos % (Auto) 1.9 % (0.0-4.0) 03/10/18 04:20 Baso % (Auto) 0.5 % (0.0-2.0) 03/10/18 04:20 Neut # (Auto) 6.7 K/uL (1.8-7.0) 03/10/18 04:20 Lymph # (Auto) 1.5 K/uL (1.0-4.3) 03/10/18 04:20 [place] # (Auto) 0.6 K/uL (0.0-0.8) 03/10/18 04:20 Eos # (Auto) 0.2 K/uL (0.0-0.7) 03/10/18 04:20 Baso # (Auto) 0.0 K/uL (0.0-0.2) 03/10/18 04:20 Neutrophils % (Manual) 95 % (42-75) H 03/07/18 23:30 Lymphocytes % (Manual) 2 % (20-50) L 03/07/18 23:30 Monocytes % (Manual) 3 % (0-10) 03/07/18 23:30 Platelet Estimate Normal (NORMAL) 03/07/18 23:30 Large Platelets Present 03/07/18 23:30 Anisocytosis (manual) Slight 03/07/18 23:30 PT 12.0 Seconds (9.8-13.1) 03/07/18 23:30 INR 1.1 03/07/18 23:30 APTT 32.2 Seconds (25.6-37.1) 03/07/18 23:30 Sodium 138 mmol/l (132-148) 03/11/18 06:00 Potassium 3.2 MMOL/L (3.6-5.0) L 03/11/18 06:00 Chloride 113 mmol/L (98-107) H 03/11/18 06:00 Carbon Dioxide 22 mmol/L (22-30) 03/11/18 06:00 Anion Gap 6 (10-20) L 03/11/18 06:00 BUN 12 mg/dl (7-17) 03/11/18 06:00 Creatinine 0.5 mg/dl (0.7-1.2) L 03/11/18 06:00 Est GFR ( Amer) > 60 03/11/18 06:00 Est GFR (Non-Af Amer) > 60 03/11/18 06:00 POC Glucose (mg/dL) 115 mg/dL (65-110) H 03/10/18 19:32 Random Glucose 122 mg/dL (65-105) H 03/11/18 06:00 Calcium 8.3 mg/dL (8.4-10.2) L 03/11/18 06:00 Total Creatine Kinase 329 U/L (30-135) H 03/11/18 06:00 Troponin I 1.8400 ng/mL (0.00-0.120) H* 03/09/18 11:20 Urine Color Yellow (YELLOW) 03/08/18 00:15 Urine Clarity Slighty-cloudy (Clear) 03/08/18 00:15 Urine pH 6.0 (5.0-8.0) 03/08/18 00:15 Ur Specific Kyle 1.017 (1.003-1.030) 03/08/18 00:15 Urine Protein 30 mg/dL (NEGATIVE) 03/08/18 00:15 Urine Glucose (UA) Neg mg/dL (Normal) 03/08/18 00:15 Urine Ketones 20 mg/dL (NEGATIVE) 03/08/18 00:15 Urine Blood Negative (NEGATIVE) 03/08/18 00:15 Urine Nitrate Negative (NEGATIVE) 03/08/18 00:15 Urine Bilirubin Negative (NEGATIVE) 03/08/18 00:15 Urine Urobilinogen 0.2-1.0 mg/dL (0.2-1.0) 03/08/18 00:15 Ur Leukocyte Esterase Neg Kira/uL (Negative) 03/08/18 00:15 Urine RBC (Auto) 3 /hpf (0-3) 03/08/18 00:15 Urine Microscopic WBC 1 /hpf (0-5) 03/08/18 00:15 Ur Squamous Epith Cells < 1 /hpf (0-5) 03/08/18 00:15 Urine Bacteria Rare (<OCC) 03/08/18 00:15 Hyaline Casts 6-10 /hpf (0-2) H 03/08/18 00:15 - Hospital Course Hospital Course: This is an 87 y/o female admitted for elevated CPK and troponin after a fall. She had a slip and fall and was noted to have elevated troponin with elevated CPK. There was no complaint of chest pain or SOB There was no dizziness. Patient was kept in the telemetry. EKG was unremarkable NSR. Noted CPK to have dropped. cardiology was consulted ECHO showed severe aortic stenosis. Patient was monitored and was discharged to home. family was advised to have a close follow up with cardiology and PMD. Discharge Exam - Head Exam Head Exam: NORMAL INSPECTION - Eye Exam Eye Exam: Normal appearance - Respiratory Exam Respiratory Exam: Clear to PA & Lateral, NORMAL BREATHING PATTERN - Cardiovascular Exam Cardiovascular Exam: REGULAR RHYTHM - GI/Abdominal Exam GI & Abdominal Exam: Normal Bowel Sounds - Neurological Exam Neurological exam: CN II-XII Intact - Psychiatric Exam Psychiatric exam: Normal Mood Discharge Plan - Follow Up Plan Condition: STABLE Disposition: REHAB FACILITY/REHAB UNIT Instructions: Preventing Falls in the Older Adult, Aortic Stenosis, Adult (DC) Additional Instructions: Patient was sent home on same meds and was advised to follow up with PMD. and Cardiology. Dagoberto Coleman M.D. Referrals: Jodie Pierre MD [Medical Doctor] - Dagoberto Coleman MD [Staff Provider] - Jorgito Griggs MD [Staff Provider] -
--- NOTE | 2018-03-14 12:39 | PQF ---
PROVIDER RESPONSE TEXT: hyponatremia REVIEWER QUERY TEXT: Clarification of Clinical Diagnostic Findings Please clarify documentation or clinical relevance for the clinical / diagnostic findings or whether those are insignificant or unable to be further specified. Na level 128 on admission. Please clarify if there is an associated diagnosis or not to go along with finding. The patient's Clinical Indicators include: Na level 128 on admission. Treated with IVF Query created by: Carmen Dela Cruz on 03/09/2018 8:18 AM Electronically signed by: Roel Burkett 03/14/2018 12:35 PM
--- NOTE | 2018-03-14 12:39 | PQF ---
PROVIDER RESPONSE TEXT: Nstemi ruled out REVIEWER QUERY TEXT: Conflicting Documentation Clarification Please clarify if the NSTEMI is ruled in or ruled out. ER: NSTEMI Cardiology: Noted to have significantly elevated CK level due to fall. Troponin level elevated.GIVEN PTS LACK OF CP OR SOB THE TROP ELEVATION MAY BE DUE TO FALL AND RHABDO A single mention or documentation of multiple diagnoses for the same clinical presentation appears in the record. Please clarify the diagnosis/diagnoses. Please also document if the condition is: -- Confirmed and current -- Confirmed, treated and resolved -- Ruled out -- Other, please specify The patient's Clinical Indicators include: ER: NSTEMI Cardiology: Noted to have significantly elevated CK level due to fall. Troponin level elevated.GIVEN PTS LACK OF CP OR SOB THE TROP ELEVATION MAY BE DUE TO FALL AND RHABDO EKG: NSR ECHO: EF: 60-65%, grade I abnormal relaxation pattern, severe , mild TR Rx: ASA, Lopressor Query created by: Carmen Dela Cruz on 03/09/2018 8:24 AM Electronically signed by: Roel Burkett 03/14/2018 12:35 PM
--- NOTE | 2018-03-14 12:39 | PQF ---
PROVIDER RESPONSE TEXT: Provider was unable to determine a response for this query. REVIEWER QUERY TEXT: Conflicting Documentation Clarification A single mention or documentation of multiple diagnoses for the same clinical presentation appears in the record. Please clarify if you concur or not with the mortgage loan originator consult that the trop elevation and elevate d CK level may be due to fall and rhabdomyolysis Please clarify the diagnosis/diagnoses. Please also document if the condition is: -- Confirmed and current -- Confirmed, treated and resolved -- Ruled out -- Other, please specify The patient's Clinical Indicators include: CK: > 1600, 3178 Troponin: 3.53, 3.93 EKG: NSR, low voltage QRS Query created by: Carmen Dela Cruz on 03/09/2018 8:27 AM Electronically signed by: Roel Burkett 03/14/2018 12:35 PM
== END 2018-03-11 13:01 | DRG 307 ==
LOC: H.ER 21:48 → H.ERHOLD 03-08 00:42 → H.TEL 03-08 02:42
PROVIDERS: ADMIT Family Medicine; ATTEND Family Medicine
DX: I35.0 Nonrheumatic aortic (valve) stenosis (principal); E87.1 Hypo-osmolality and hyponatremia; R78.89 Finding of other specified substances, not normally found in blood; S09.90XA Unspecified injury of head, initial encounter; W01.0XXA Fall on same level from slipping, tripping and stumbling without subsequent striking against object, initial encounter; Z87.891 Personal history of nicotine dependence; I10 Essential (primary) hypertension; Y92.009 Unspecified place in unspecified non-institutional (private) residence as the place of occurrence of the external cause; M25.561 Pain in right knee; M25.562 Pain in left knee; M54.2 Cervicalgia; R15.9 Full incontinence of feces; E78.00 Pure hypercholesterolemia, unspecified; E78.5 Hyperlipidemia, unspecified; F03.90 Unspecified dementia, unspecified severity, without behavioral disturbance, psychotic disturbance, mood disturbance, and anxiety; S00.83XA Contusion of other part of head, initial encounter